=== PATIENT | male | born 1985 | race Two or more races ===

== ENCOUNTER 2016-05-08 20:08 | Emergency (ER) | payer OTHER ==
[2016-05-08] MEDS ORDERED: SODIUM CHLORIDE 0.9% 1,000 ML IV ONE (20:46)
[2016-05-08] MEDS ORDERED: ONDANSETRON 4 MG/2 ML VIAL IVP STA (20:46)
[2016-05-08] MEDS ORDERED: LOPERAMIDE 2 MG CAPSULE PO STA (20:47)
[2016-05-08] MEDS ORDERED: ONDANSETRON 4 MG/2 ML VIAL ONE ×2 (20:54→20:55)
[2016-05-08] MEDS ORDERED: LOPERAMIDE 2 MG CAPSULE PO ONE (21:01)
== END 2016-05-08 22:13 | disposition home or self-care (01) ==
DX: E86.0 Dehydration (principal); R19.7 Diarrhea, unspecified; R03.0 Elevated blood-pressure reading, without diagnosis of hypertension
CPT/HCPCS: 36415; 80053; 81001; 83690; 85025; 96374; 99283; A9270

== ENCOUNTER 2016-08-29 14:29 | Emergency (ER) | payer OTHER ==
[2016-08-29 14:45] VITALS: BP 120/79
[2016-08-29] MEDS ORDERED: DEXAMETHASONE 10 MG/ML VIAL PO STA (15:36)
--- NOTE | 2016-08-29 15:38 | ED Physician Documentation ---
PD HPI OPHTHO - Stated complaint Stated Complaint: BILAT EYE PAIN - Chief complaint Chief Complaint: Heent - History obtained from History obtained from: Patient - History of Present Illness Timing - onset: How many hours ago (3) Timing - duration: Hours (3) Timing - details: Gradual onset Pain level max: 1 Pain level now: 1 Location: Both Quality / character: Itching, Burning Associated symptoms: Redness, Swelling, Tearing, Discharge (clear). 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 Does have a history of seasonal allergies. There is currently a high pollen count in the area. does not take any allergy medication Review of Systems Constitutional: denies: Fever, Chills Eyes: denies: Photophobia Respiratory: denies: Cough, Wheezing PD PAST MEDICAL HISTORY - Past Medical History Past Medical History: Yes Psych: Anxiety Other Past Medical History: G6PD Deficiency - Past Surgical History Past Surgical History: No - Present Medications Home Medications: Ambulatory Orders Medication Instructions Recorded Confirmed Cetirizine HCl/Pseudoephedrine 1 each PO BID PRN #30 tab.er.12h 08/29/16 [Zyrtec-D Tablet] Citalopram [CeleXA] 10 mg PO DAILY 08/29/16 08/29/16 Ketotifen Fumarate [Zaditor] 1 drops OP BID PRN #1 bottle 08/29/16 - Allergies Allergies/Adverse Reactions: Allergies Allergy/AdvReac Type Severity Reaction Status Date / Time No Known Drug Allergies Allergy Verified 08/29/16 14:59 - Social History Does the pt smoke?: No Smoking Status: Never smoker Does the pt drink ETOH?: No Does the pt have substance abuse?: No - Immunizations Immunizations are current?: Yes - POLST Patient has POLST: No PD ED PE NORMAL - Vitals Vital signs reviewed: Yes - General General: Alert and oriented X 3, No acute distress, Well developed/nourished - HEENT HEENT: PERRL, Ears normal, Moist mucous membranes, Pharynx benign, Other ( Bilateral conjunctival injection with mild tearing. No purulent discharge. Normal lids.) - Neck Neck: Supple, no meningeal sign - Cardiac Cardiac: RRR - Respiratory Respiratory: No respiratory distress, Clear bilaterally - Derm Derm: Warm and dry, No rash - Neuro Neuro: Alert and oriented X 3 - Psych Psych: Normal mood, Normal affect Results - Vitals Vitals: Oxygen O2 Source Room air PD MEDICAL DECISION MAKING - ED course Complexity details: considered differential, d/w patient ED course: Patient is a 31-year-old male who presents to the emergency department with what appears to be bilateral allergic conjunctivitis. Will place him on Zaditor eyedrops for home and allergy medication. He is well-appearing, nontoxic. Afebrile. No stridor. No wheezing. No hives. Patient counseled regarding signs and symptoms for which I believe and urgent re-evaluation would be necessary. Patient with good understanding of and agreement to plan and is comfortable going home at this time This document was made in part using voice recognition software. While efforts are made to proofread this document, sound alike and grammatical errors may occur. Departure - Departure Disposition: 01 Home, Self Care Clinical Impression: Allergic conjunctivitis Qualifiers: Laterality: bilateral Qualified Code(s): H10.13 - Acute atopic conjunctivitis, bilateral Condition: Good Instructions: ED Allergic Conjunctivitis Follow-Up: your,doctor in 1 week [Other] Prescriptions: Ketotifen Fumarate [Zaditor] 1 drops OP BID PRN #1 bottle PRN Reason: Allergy Symptoms Cetirizine HCl/Pseudoephedrine [Zyrtec-D Tablet] 1 each PO BID PRN #30 tab.er.12h PRN Reason: Nasal Congestion Comments: Return if you worsen. Discharge Date/Time: 08/29/16 15:51
[2016-08-29] MEDS ORDERED: DEXAMETHASONE 10 MG/ML VIAL ONE (15:41)
[2016-08-29] MEDS ORDERED: CHERRY SYRUP 10 ML UDC PO ONE (15:41)
== END 2016-08-29 15:51 | disposition home or self-care (01) ==
LOC: ED 14:29
DX: H10.13 Acute atopic conjunctivitis, bilateral (principal)
CPT/HCPCS: 99283; A9270

== ENCOUNTER 2018-02-22 01:31 | Emergency (ER) | payer OTHER ==
[2018-02-22] MEDS ORDERED: KETOROLAC 30 MG/ML VIAL ONE (01:50)
--- NOTE | 2018-02-22 01:51 | ED Physician Documentation ---
PD HPI ABD PAIN - Stated complaint Stated Complaint: ABD PX - Chief complaint Chief Complaint: Abd Pain - History obtained from History obtained from: Patient - History of Present Illness Timing - onset: Enter time (0600), Yesterday Timing - duration: Days (1) Timing - details: Abrupt onset, Still present Quality: Sharp, Pain Location: Epigastric, LUQ Improved by: Other (sitting up) Worsened by: Other (nothing) Associated symptoms: Nausea. No: Vomiting Similar symptoms before: Has not had sx before Recently seen: Not recently seen - Additional information Additional information: Previously healthy 32-year-old male developed acute left upper quadrant pain radiating to his back yesterday morning at 06:00. He was able to go to work yesterday. This evening the pain is much worse and feels like a spear going through to his back and he wants it removed. Review of Systems Constitutional: denies: Fever, Myalgias, Fatigue Eyes: denies: Decreased vision Ears: denies: Ear pain Nose: denies: Congestion Throat: denies: Sore throat Cardiac: denies: Chest pain / pressure, Palpitations Respiratory: denies: Dyspnea, Cough GI: reports: Abdominal Pain. denies: Nausea, Vomiting, Constipation, Diarrhea : denies: Dysuria, Frequency Skin: denies: Rash Musculoskeletal: reports: Back pain. denies: Neck pain, Extremity pain Neurologic: denies: Generalized weakness, Focal weakness, Numbness PD PAST MEDICAL HISTORY - Past Medical History Psych: Anxiety - Past Surgical History Past Surgical History: No - Allergies Allergies/Adverse Reactions: Allergies Allergy/AdvReac Type Severity Reaction Status Date / Time No Known Drug Allergies Allergy Verified 02/22/18 01:39 - Social History Does the pt smoke?: No Smoking Status: Never smoker Does the pt drink ETOH?: No Does the pt have substance abuse?: No - Immunizations Immunizations are current?: Yes - POLST Patient has POLST: No PD ED PE NORMAL - Vitals Vital signs reviewed: Yes (hypertensive ) - General General: Alert and oriented X 3, Well developed/nourished, Other (The patient appears to be acutely in pain and he appologises for the anger in his voice. 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, No motor deficit, No sensory deficit, Normal speech Eye Opening: Spontaneous Motor: Obeys Commands Verbal: Oriented GCS Score: 15 - Psych Psych: Normal mood, Normal affect Results - Vitals Vitals: Vital Signs - 24 hr 02/22/18 01:35 Temperature 36.9 C Heart Rate 94 Respiratory 20 Rate Blood Pressure 144/85 H O2 Saturation 98 Oxygen O2 Source Room air - Labs Labs: Laboratory Tests 02/22/18 02/22/18 02/22/18 01:50 01:50 01:50 WBC 9.7 RBC 5.54 Hgb 17.0 Hct 49.7 MCV 89.8 MCH 30.7 MCHC 34.2 RDW 12.4 Plt Count 198 MPV 9.9 Neut # (Auto) 5.5 Lymph # (Auto) 2.9 [place] # (Auto) 0.7 Eos # (Auto) 0.6 Baso # (Auto) 0.1 Absolute Nucleated RBC 0.01 Nucleated RBC % 0.1 Sodium 139 Potassium 3.6 Chloride 101 Carbon Dioxide 29 Anion Gap 9.0 BUN 22 H Creatinine 1.3 H Estimated GFR (MDRD) 64 L Glucose 93 Calcium 9.3 Total Bilirubin 1.1 H AST 25 ALT 22 Alkaline Phosphatase 42 Troponin I < 0.04 Total Protein 7.8 Albumin 4.6 Globulin 3.2 Albumin/Globulin Ratio 1.4 Lipase 37 Urine Color Urine Clarity Urine pH Ur Specific Drifting Urine Protein Urine Glucose (UA) Urine Ketones Urine Occult Blood Urine Nitrite Urine Bilirubin Urine Urobilinogen Ur Leukocyte Esterase Urine RBC Urine WBC Ur Squamous Epith Cells Urine Bacteria Urine Mucus Ur Microscopic Review Urine Culture Comments 02/22/18 02:45 WBC RBC Hgb Hct MCV MCH MCHC RDW Plt Count MPV Neut # (Auto) Lymph # (Auto) [place] # (Auto) Eos # (Auto) Baso # (Auto) Absolute Nucleated RBC Nucleated RBC % Sodium Potassium Chloride Carbon Dioxide Anion Gap BUN Creatinine Estimated GFR (MDRD) Glucose Calcium Total Bilirubin AST ALT Alkaline Phosphatase Troponin I Total Protein Albumin Globulin Albumin/Globulin Ratio Lipase Urine Color YELLOW Urine Clarity CLEAR Urine pH 6.0 Ur Specific Drifting >=1.030 H Urine Protein NEGATIVE Urine Glucose (UA) NEGATIVE Urine Ketones TRACE Urine Occult Blood SMALL H Urine Nitrite NEGATIVE Urine Bilirubin NEGATIVE Urine Urobilinogen 0.2 (NORMAL) Ur Leukocyte Esterase NEGATIVE Urine RBC 0-5 Urine WBC 0-3 Ur Squamous Epith Cells RARE Squamous Urine Bacteria None Seen Urine Mucus Moderate Strands Ur Microscopic Review INDICATED Urine Culture Comments NOT INDICATED - Rads (name of study) CT abd/pel without Radiology: Prelim report reviewed (Impression: 1. No urolithiasis seen. No acute inflammatory or obstructive process seen in the abdomen or pelvis.), EMP read indepedently, See rad report Procedures - Bedside sono Bedside sono by EMP: With use of bedside ultrasound the left kidney is examined it is sonographically nontender and there is evidence of hydronephrosis. The bedside ultrasound was done while the patient was having acute pain. PD MEDICAL DECISION MAKING - ED course Complexity details: reviewed old records, reviewed results, re-evaluated patient, considered differential, d/w patient ED course: Previously well 32-year-old male with acute left-sided abdominal pain presented to the emergency department with severe pain with no modifying factors he was found to have hydronephrosis on bedside ultrasound exam of the left kidney while he was in the throes of pain. He was administered a liter of saline 30 mg of Toradol and had resolution of his pain prior to going into the CAT scanner. There was a trace amount of blood in his urine. I suspect these findings are consistent with a passed kidney stone. There are no other stones in the patient's kidneys. Departure - Departure Disposition: 01 Home, Self Care Clinical Impression: Ureterolithiasis Instructions: ED Stone Renal Passed Follow-Up: VIKI Sanabria [Provider Group]
[2018-02-22] MEDS: SODIUM CHLORIDE 0.9% 1,000 ML IV ONE (01:53)
[2018-02-22] MEDS: KETOROLAC 60 MG/2 ML VIAL IVP STA (01:53)
[2018-02-22 02:13] LABS: BASOPHILS # (AUTO) 0.1 10^3/uL (0.0-0.1); BASOPHILS % (AUTO) 0.8 %; EOSINOPHILS # (AUTO) 0.6 10^3/uL (0.0-0.7); LYMPHOCYTES # (AUTO) 2.9 10^3/uL (1.5-3.5); LYMPHOCYTES % (AUTO) 29.5 %; MEAN CORPUSCULAR HEMOGLOBIN 30.7 pg (27.0-31.0); MEAN CORPUSCULAR HGB CONC 34.2 g/dL (32.0-36.0); MEAN CORPUSCULAR VOLUME 89.8 fL (80.0-94.0); MEAN PLATELET VOLUME 9.9 fL (7.4-11.4); MONOCYTES # (AUTO) 0.7 10^3/uL (0.0-1.0); MONOCYTES % (AUTO) 7.4 %; NEUTROPHILS # (AUTO) 5.5 10^3/uL (1.5-6.6); NEUTROPHILS % (AUTO) 56.3 %; PLT - PLATELET COUNT 198 10^3/uL (130-450); RED BLOOD COUNT 5.54 10^6/uL (4.70-6.10); RED CELL DISTRIBUTION WIDTH 12.4 % (12.0-15.0); WHITE BLOOD COUNT 9.7 x10^3/uL (4.8-10.8)
[2018-02-22 02:18] LABS: ALBUMIN 4.6 g/dL (3.2-5.5); ALBUMIN/GLOBULIN RATIO 1.4 (1.0-2.2); BILIRUBIN,TOTAL 1.1 mg/dL (0.2-1.0); CALCIUM 9.3 mg/dL (8.5-10.3); CREATININE 1.3 mg/dL (0.6-1.2); TOTAL PROTEIN 7.8 g/dL (6.7-8.2)
--- NOTE | 2018-02-22 02:25 | CT Report ---
Reason: L flank pain Procedure Date: 02/22/2018 Accession Number: [id number] / [id number] Procedure: CT - Abdomen/Pelvis W/O CPT Code: FULL RESULT: EXAM: CT ABDOMEN AND PELVIS (CT KUB) EXAM DATE: 02/22/2018 01:56 AM. CLINICAL HISTORY: L flank pain. COMPARISONS: None. TECHNIQUE: Routine axial helical CT imaging was performed through the abdomen and pelvis without IV contrast. Reconstructions: Coronal and sagittal. In accordance with CT protocol optimization, one or more of the following dose reduction techniques were utilized for this exam: automated exposure control, adjustment of mA and/or KV based on patient size, or use of iterative reconstructive technique. FINDINGS: Lung Bases: Unremarkable. Right Kidney/Ureter: No stones, hydronephrosis, or hydroureter. No perinephric fat stranding. Left Kidney/Ureter: No stones, hydronephrosis, or hydroureter. No perinephric fat stranding. Other Solid Organs: Noncontrast images of the solid organs are grossly unremarkable. Gallbladder/Bile Ducts: Unremarkable. Peritoneal Cavity: No free fluid, free air or kiara adenopathy. Bowel is grossly unremarkable. Appendix appears normal. Pelvic Organs: No bladder stones or wall thickening. Noncontrast images of the visualized pelvic organs are unremarkable. Vasculature: Unremarkable. Other: None. IMPRESSION: 1. No urolithiasis seen. 2. No acute inflammatory or obstructive process seen in the abdomen or pelvis. RAD[facility]
[2018-02-22 02:54] LABS: BILIRUBIN,URINE NEGATIVE (NEGATIVE); GLUCOSE, URINE (UA) NEGATIVE (NEGATIVE); KETONES,URINE (UA) TRACE mg/dL (NEGATIVE); LEUKOCYTE ESTERASE, URINE NEGATIVE (NEGATIVE); NITRITE,URINE NEGATIVE (NEGATIVE); OCCULT BLOOD,URINE SMALL (NEGATIVE); PROTEIN,URINE NEGATIVE (NEGATIVE); UROBILINOGEN,URINE 0.2 (NORMAL) E.U./dL (NORMAL)
[2018-02-22 03:04] LABS: CLARITY,URINE CLEAR (CLEAR)
[2018-02-22 03:05] LABS: BACTERIA,URINE None Seen /HPF (None Seen); MUCUS,URINE Moderate Strands; RBC,URINE 0-5 /HPF (0-5); SQUAMOUS EPITHELIAL CELL,UR RARE Squamous (<= Few)
[2018-02-22 03:24] VITALS: BP 118/72
== END 2018-02-22 03:30 | disposition home or self-care (01) ==
LOC: ED 01:31
DX: N20.1 Calculus of ureter (principal)
CPT/HCPCS: 36415; 74176; 80053; 81001; 81003; 83690; 84484; 85025; 87086; 96361; 96374; 99283

== ENCOUNTER 2019-03-04 10:59 | Emergency (ER) | payer OTHER ==
[2019-03-04] MEDS ORDERED: ALBUTEROL NEB 2.5 MG/3 ML INH STA (13:52)
--- NOTE | 2019-03-04 14:01 | ED Physician Documentation ---
PD HPI URI - Stated complaint Stated Complaint: FLU LIKE SYMPTOMS - Chief complaint Chief Complaint: Fever - History obtained from History obtained from: Patient - History of Present Illness Timing - onset: How many days ago (4-5) Timing duration: Days Timing details: Gradual onset Pain level max: 5 Pain level now: 5 Associated symptoms: Fever, Chills, Nasal congestion, Rhinorrhea, Productive cough. No: Hemoptysis, Chest pain Contributing factors: Sick contact Improves by: Rest Worsened by: Activity Recently seen: Not recently seen Review of Systems Nose: reports: Rhinorrhea / runny nose, Congestion GI: denies: Vomiting, Diarrhea Skin: denies: Rash Musculoskeletal: denies: Neck pain, Back pain Neurologic: denies: Headache PD PAST MEDICAL HISTORY - Past Medical History Past Medical History: No Cardiovascular: None Respiratory: None Neuro: None Endocrine/Autoimmune: None GI: None : None HEENT: None Psych: Anxiety Musculoskeletal: None Derm: None - Past Surgical History Past Surgical History: No - Present Medications Home Medications: Ambulatory Orders Medication Instructions Recorded Confirmed Albuterol Sulf [Ventolin Hfa 1 - 2 puffs INH Q4HR PRN #1 inhaler 03/04/19 Inhaler] Benzonatate [Tessalon Perle] 100 - 200 mg PO TID PRN #30 capsule 03/04/19 Ibuprofen [Motrin] 800 mg PO Q8H PRN #30 tablet 03/04/19 - Allergies Allergies/Adverse Reactions: Allergies Allergy/AdvReac Type Severity Reaction Status Date / Time No Known Drug Allergies Allergy Verified 02/22/18 01:39 - Social History Does the pt smoke?: No Smoking Status: Never smoker Does the pt drink ETOH?: No Does the pt have substance abuse?: No - Immunizations Immunizations are current?: Yes - POLST Patient has POLST: No PD ED PE NORMAL - Vitals Vital signs reviewed: Yes - General General: Alert and oriented X 3, No acute distress, Well developed/nourished - HEENT HEENT: PERRL, Ears normal, Moist mucous membranes, Pharynx benign - Neck Neck: Supple, no meningeal sign - Cardiac Cardiac: RRR, Strong equal pulses - Respiratory Respiratory: No respiratory distress, Other (Mild wheezing bilaterally.) - Abdomen Abdomen: Soft, Non tender, Non distended - Derm Derm: Warm and dry, No rash - Extremities Extremities: No edema - Neuro Neuro: Alert and oriented X 3 - Psych Psych: Normal mood, Normal affect Results - Vitals Vitals: Vital Signs - 24 hr 03/04/19 03/04/19 03/04/19 11:36 13:23 14:00 Temperature 37.0 C 37.1 C Heart Rate 104 H 87 109 H Respiratory 18 18 20 Rate Blood Pressure 124/74 120/80 O2 Saturation 98 96 03/04/19 14:46 Temperature 37.0 C Heart Rate 102 H Respiratory 18 Rate Blood Pressure 130/99 H O2 Saturation 99 Oxygen O2 Source Room air - Labs Labs: Laboratory Tests 03/04/19 11:05 Influenza A (Rapid) Negative Influenza B (Rapid) Negative - Rads (name of study) Chest x-ray Radiology: Prelim report reviewed, EMP read contemporaneously, See rad report (normal) PD MEDICAL DECISION MAKING - ED course Complexity details: reviewed results, re-evaluated patient, considered differential, d/w patient ED course: Patient appears to have a viral upper respiratory infection. He is well- appearing, nontoxic. Tolerating p.o. without difficulty. We will continue supportive care and follow-up with his doctor for further care. Patient counseled regarding signs and symptoms for which I believe and urgent re- evaluation would be necessary. Patient with good understanding of and agreement to plan and is comfortable going home at this time This document was made in part using voice recognition software. While efforts are made to proofread this document, sound alike and grammatical errors may occur. Departure - Departure Disposition: 01 Home, Self Care Clinical Impression: Viral syndrome Condition: Good Instructions: ED Viral Syndrome Follow-Up: your,doctor in 1 week [Other] Prescriptions: Albuterol Sulf [Ventolin Hfa Inhaler] 1 - 2 puffs INH Q4HR PRN #1 inhaler PRN Reason: Shortness Of Air/Wheezing Benzonatate [Tessalon Perle] 100 - 200 mg PO TID PRN #30 capsule PRN Reason: Cough Ibuprofen [Motrin] 800 mg PO Q8H PRN #30 tablet PRN Reason: PAIN &/OR FEVER Comments: Go home and rest. This will likely last another 3 to 4 days. Drink plenty of fluids at home. Return if you worsen. Your flu test is negative. Your chest x-ray does not show any pneumonia. Discharge Date/Time: 03/04/19 14:47
--- NOTE | 2019-03-04 14:33 | XRAY Report ---
Reason: cough Procedure Date: 03/04/2019 Accession Number: [id number] / [id number] Procedure: XR - Chest 2 View X-Ray CPT Code: 32951 Final Report FULL RESULT: EXAM: CHEST RADIOGRAPHY EXAM DATE: 03/04/2019 02:13 PM. CLINICAL HISTORY: Cough. COMPARISON: CHEST 2 VIEW PA/LAT 02/24/2014 12:28 PM. TECHNIQUE: 2 views. FINDINGS: Lungs/Pleura: No focal opacities evident. No pleural effusion. No pneumothorax. Normal volumes. Mediastinum: Heart and mediastinal contours are unremarkable. Other: None. IMPRESSION: No acute cardiopulmonary abnormality. RADIA
[2019-03-04 14:47] VITALS: BP 130/99
== END 2019-03-04 14:47 | disposition home or self-care (01) ==
LOC: ED 10:59
DX: B34.9 Viral infection, unspecified (principal); R06.2 Wheezing
CPT/HCPCS: 71046; 87275; 87276; 94640; 94664; 99284